=== PATIENT | female | born 1985 | race Caucasian/White ===

== ENCOUNTER 2022-04-20 03:41 | Emergency (ER) | payer OTHER, SELFPAY ==
[2022-04-20 03:50] VITALS: BP 180/80; PULSE 87; RESP 18; TEMP 36.6; O2SAT 100
[2022-04-20 04:31] LABS: COVID19 -Nasal RAPID Negative (Negative)
--- NOTE | 2022-04-20 06:13 | ED_ITS ---
HPI - General Adult General Chief complaint: Upper Respiratory Symptoms Stated complaint: throat swollen Time Seen by Provider: 04/20/22 06:04 Source: patient Mode of arrival: Ambulatory History of Present Illness HPI narrative: patient here for pharyngeal swelling. Started last night. Patient states this is the 2nd episode that this is happen. First episode occurred about 8 or 9 years ago. Patient states she used to live here. Moved away to [facility] 3 years ago. Came back October of this year and since then her allergies have been terrible. Has had nasal congestion and runny nose. Also has had cough. Patient does not smoke or do marijuana. Related Data Home Medications Medication Instructions Recorded Confirmed metformin 850 mg tablet 850 mg PO BID 12/26/21 03/30/22 Previous Rx's Medication Instructions Recorded albuterol sulfate 90 mcg/actuation 2 puff inhalation Q4-6H PRN 03/30/22 aerosol inhaler shortness of breath or wheezing #8.5 grams fexofenadine 60 mg tablet 60 mg PO BID #30 tabs 04/20/22 fluticasone propionate 50 1 spray intranasal BID #16 grams 04/20/22 mcg/actuation nasal spray,suspension methylprednisolone 4 mg tablets in See Rx Instructions PO .COMPLEX 04/20/22 a dose pack (Medrol (Anshu)) #21 ea Allergies Allergy/AdvReac Type Severity Reaction Status Date / Time No Known Drug Allergies Allergy Unverified 03/30/22 16:35 Review of Systems Review of Systems Narrative: GENERAL: Denies chills, fatigue, malaise, fever, sweats. HEENT: Denies sinus pain, ear pain, positive for throat swelling RESPIRATORY: Denies dyspnea, Positive forcough CARDIOVASCULAR: Denies chest pain, palpitations GASTROINTESTINAL: Denies nausea, vomiting, abdominal pain : Denies dysuria, frequency, hematuria MUSCULOSKELETAL: denies muscle or bony pain SKIN: Denies rash, skin lesions NEUROLOGIC: Denies weakness, numbness ROS Unobtainable: All systems reviewed & are unremarkable except as noted in HPI and below Patient History Social History Smoking Status: Never smoker Smoking Status: Never smoker Substance Use Type: does not use Exam Narrative Exam Narrative: GENERAL: in no distress, not toxic not dyspneic HEAD: Normocephalic. EYES: Pupils equal round No scleral icterus. ENT: Mucous membranes moist. there is enlargement edema of the uvula. No drooling. No tongue elevation. No malocclusion or trismus. Patient handling secretions and protecting airway. No pharyngeal erythema or edema or exudate NECK: Trachea midline. No stridor. CARDIOVASCULAR: Regular rate and rhythm without murmurs RESPIRATORY: Clear to auscultation. Breath sounds equal bilaterally. No wheezes, rales, or rhonchi. Speaking full sentences with ease. No respiratory distress BACK: No flank tenderness. NEURO: AOx4. SKIN: Warm and dry PSYCH: Not anxious, is cooperative Initial Vital Signs Initial Vital Signs: Vital Signs Temperature 98 F 04/20/22 03:50 Pulse Rate 87 04/20/22 03:50 Respiratory Rate 18 04/20/22 03:50 Blood Pressure 180/80 H 04/20/22 03:50 Pulse Oximetry 100 04/20/22 03:50 Oxygen Delivery Method 04/20/22 03:50 Course Course Course Narrative: no new issues during course of stay Orders Ordered: Discontinued Medications Oxymetazoline HCl (Oxymetazoline Nasal Staples 15 Ml) 2 sprays NASAL NOW ONE Stop: 04/20/22 06:13 Last Admin: 04/20/22 06:19 Dose: 2 sprays Documented By: SD Prednisone (Prednisone 20 Mg Tablet) 60 mg PO NOW ONE Stop: 04/20/22 06:13 Last Admin: 04/20/22 06:20 Dose: 60 mg Documented By: SD Reevaluation(s) Reevaluation #1: patient tolerated medications very well. Protecting airway. Return precautions reviewed with her. Reviewed diagnosis with her as well Time: 06:16 Vital Signs Vital signs: Vital Signs - 8 hr 04/20/22 03:50 Temperature 98 F Pulse Rate 87 Respiratory Rate 18 Blood Pressure 180/80 H Pulse Oximetry 100 Oxygen Delivery Method Room Air Medical Decision Making Differential Diagnosis Differential Diagnosis: pharyngitis/strep throat/ uvulitis /epiglottitis/ pharyngeal abscess/tonsi Lab Data Labs: Lab Results 04/20/22 Range/Units 03:55 SARS-CoV-2 (PCR) Negative (Negative) Point of Care Testing Rapid Strep A Negative Point of care testing: Point of Care Testing Rapid Strep A Negative MDM Narrative Medical decision making narrative: appropriate for discharge home. Exam reassuring. His clinically uvulitis. No imaging indicated this time. Not toxic. No respiratory complaints. No hypoxia. Patient protecting airway without difficulty. Return precautions reviewed with her. Referral to Otolaryngology given. Prescription for steroid pack as well as Flonase and allergy medication given. Discharge Plan Departure Patient Disposition: Home Clinical Impression: Uvulitis Instructions: Allergic Rhinitis Activity Restrictions/Additional Instructions: Please call provided ear nose and throat office today for office recheck of your throat next week. Continue steroid pack tomorrow. Return if any trouble breathing or swallowing or any drooling. Be sure to fill the prescriptions provided for you. You may be developing allergies. Will need daily maintenance medications to help for allergies. Your blood pressure was elevated today. Patient her to see her family doctor next week for recheck of your blood pressure. Call provided primary care referral phone number to establish family doctor. Call [phone] Prescriptions: New methylprednisolone [Medrol (Anshu)] 4 mg tablets,dose pack See Rx Instructions .ROUTE .COMPLEX Qty: 21 0RF Rx Instructions: orally per package directions fluticasone propionate 50 mcg/actuation spray,suspension 1 spray intranasal BID Qty: 16 0RF Rx Instructions: administer into each nostril fexofenadine 60 mg tablet 60 mg PO BID Qty: 30 0RF No Action metformin 850 mg tablet 850 mg PO BID albuterol sulfate 90 mcg/actuation HFA aerosol inhaler 2 puff inhalation Q4-6H PRN (Reason: shortness of breath or wheezing) Qty: 8.5 2RF Referrals: Sean Tran MD [Physician] - Miscellaneous,MD Elmer [Primary Care Provider] - Visit Report Forms: Patient Portal/API
[2022-04-20] MEDS: OXYMETAZOLINE NASAL SPRAY 15 ML 2 SPRAYS NASAL (06:19)
[2022-04-20] MEDS: predniSONE 20 MG TABLET 60 MG PO (06:20)
[2022-04-20 06:34] VITALS: BP 123/72; PULSE 99; RESP 20; O2SAT 99
== END 2022-04-20 06:35 | disposition home or self-care (01) ==
PROVIDERS: Emergency Provider Emergency Medicine
DX: K12.2 Cellulitis and abscess of mouth (principal); Z20.822 Contact with and (suspected) exposure to COVID-19
CPT/HCPCS: 87635; 87880; 99283; C9803; A9270

== ENCOUNTER → 2023-06-10 18:34 | Outpatient (CLI) | payer BC, OTHER, SELFPAY | PROVIDERS: Visit Provider Nurse Practitioner Family | DX: J02.9 Acute pharyngitis, unspecified (principal) | CPT/HCPCS: 87070; 87077; 87147 ==

== ENCOUNTER 2024-04-22 | Emergency (ER) | payer BC, SELFPAY ==
[2024-04-22 00:05] VITALS: BP 134/70; PULSE 108; RESP 20; TEMP 36.8; O2SAT 97; BMI 27.3
--- NOTE | 2024-04-22 00:36 | ED.URI ---
HPI - URI/Sore Throat General Chief Complaint: Upper Respiratory Symptoms Stated Complaint: throat and ear pain Time Seen by Provider: 04/22/24 00:03 Source: patient Mode of arrival: Ambulatory History of Present Illness HPI Narrative: 39-year-old female with history of diabetes on metformin presents for several hours of throat and left ear pain. Patient states that she noticed a tickle developing in her throat throughout the day that she thought was due to dry throat. She woke up around 11:00 p.m. and could not go back to sleep due to the pain. No medications taken at home prior to arrival. Reports referred pain to her left ear. No fevers at home. Related Data Home Medications Medication Instructions Recorded Confirmed metformin 850 mg tablet 850 mg PO BID 12/26/21 06/10/23 Previous Rx's Medication Instructions Recorded albuterol sulfate 90 mcg/actuation 2 puff inhalation Q4-6H PRN 03/30/22 aerosol inhaler shortness of breath or wheezing #8.5 grams fexofenadine 60 mg tablet 60 mg PO BID #30 tabs 04/20/22 fluticasone propionate 50 1 spray intranasal BID #16 grams 04/20/22 mcg/actuation nasal spray,suspension methylprednisolone 4 mg tablets in See Rx Instructions PO .COMPLEX 04/20/22 a dose pack (Medrol (Anshu)) #21 ea Allergies Allergy/AdvReac Type Severity Reaction Status Date / Time No Known Drug Allergies Allergy Unverified 06/10/23 18:32 Patient History Social History Smoking Status: Never smoker Smoking Status: Never smoker Substance Use Type: does not use Exam Initial Vital Signs Initial Vital Signs: Vital Signs Temperature 98.3 F 04/22/24 00:05 Pulse Rate 108 H 04/22/24 00:05 Respiratory Rate 20 04/22/24 00:05 Blood Pressure 134/70 04/22/24 00:05 Pulse Oximetry 97 04/22/24 00:05 Oxygen Delivery Method Room Air 04/22/24 00:05 Const: Awake, alert, no acute distress, nontoxic appearing HEENT: Mucous membranes moist, mild pharyngeal erythema without edema or exudates, TM normal bilaterally Skin: Warm, Dry, intact, no rashes Neuro: AO x3, CN II-XII grossly intact, moves all extremities Course Orders Ordered: ED Orders 04/22/24 00:30 Covid-19 + FLU A/B + RSV - PCR Stat 04/22/24 00:32 Strep Grp A by PCR Rapid Stat Discontinued Medications Dexamethasone (Dexamethasone 10 Mg/Ml Vial) 10 mg PO NOW ONE Stop: 04/22/24 00:36 Last Admin: 04/22/24 00:43 Dose: 10 mg Documented By: EMERSON Vital Signs Vital signs: Vital Signs - 8 hr 04/22/24 00:05 Temperature 98.3 F Pulse Rate 108 H Respiratory Rate 20 Blood Pressure 134/70 Pulse Oximetry 97 Oxygen Delivery Method Room Air MDM - URI/Sore Throat Lab Data Labs: Lab Results 04/22/24 04/22/24 Range/Units 00:30 00:32 SARS-CoV-2 (PCR) Negative (Negative) Influenza A (RT-PCR) Flu a negative (NEGATIVE) Influenza B (RT-PCR) Flu b negative (NEGATIVE) RSV (PCR) Negative (Negative) Group A Strep (PCR) Negative (Negative) MDM Narrative Medical decision making narrative: Several hours of sore throat. Physical exam is relatively unremarkable, mild pharyngeal erythema but no edema, exudates, unilateral swelling to suggest underlying abscess. Flu, COVID, RSV, strep swabs negative. Patient given dose of steroids, counseled on the effects of steroids can have on blood sugars. Supportive measures counseled for home. Discharge Plan Departure Patient Disposition: Home Clinical Impression: Pharyngitis Qualifiers: Pharyngitis/tonsillitis etiology: unspecified etiology Qualified Code(s): J02.9 - Acute pharyngitis, unspecified Instructions: DI for Viral Pharyngitis Activity Restrictions/Additional Instructions: Your strep, flu, COVID, and RSV swabs were negative today. Your sore throat is still likely to be caused by a virus. Take Tylenol and Motrin for pain or discomfort. Use warm saltwater gargles, or tea with honey for comfort. You may also use Cepacol lozenges, which have a numbing medication in them, for comfort. You were given a dose of steroids today, which may temporarily increase your blood sugars. Please watch your diet for the next several days due to your history of diabetes. Prescriptions: No Action metformin 850 mg tablet 850 mg PO BID albuterol sulfate 90 mcg/actuation HFA aerosol inhaler 2 puff inhalation Q4-6H PRN (Reason: shortness of breath or wheezing) Qty: 8.5 2RF methylprednisolone [Medrol (Anshu)] 4 mg tablets,dose pack See Rx Instructions .ROUTE .COMPLEX Qty: 21 0RF Rx Instructions: orally per package directions fluticasone propionate 50 mcg/actuation spray,suspension 1 spray intranasal BID Qty: 16 0RF Rx Instructions: administer into each nostril fexofenadine 60 mg tablet 60 mg PO BID Qty: 30 0RF Referrals: Miscellaneous,Doctor, MD [Primary Care Provider] - Stand Alone Forms: Patient Portal/API
[2024-04-22] MEDS: DEXAMETHASONE 10 MG/ML VIAL PO (00:43)
[2024-04-22 00:47] LABS: Strep Grp A by PCR Rapid Negative (Negative)
[2024-04-22 01:22] LABS: COVID-19 CEPHEID 4-PLEX PCR Negative (Negative); Influenza A - CEPHEID Flu A NEGATIVE (NEGATIVE); Influenza B - CEPHEID Flu B NEGATIVE (NEGATIVE); Respiratory Syncytial Virus Negative (Negative)
[2024-04-22 01:30] VITALS: BP 142/77; PULSE 104; RESP 18; O2SAT 96
== END 2024-04-22 01:34 | disposition home or self-care (01) ==
PROVIDERS: Emergency Provider Emergency Medicine
DX: J02.9 Acute pharyngitis, unspecified (principal); H92.02 Otalgia, left ear; Z11.52 Encounter for screening for COVID-19
CPT/HCPCS: 0241U; 87651; 99283; J1100

== ENCOUNTER 2024-04-26 17:00 | Emergency (ER) | payer BC, SELFPAY ==
[2024-04-26 17:07] VITALS: BP 134/76; PULSE 104; RESP 18; TEMP 36.4; O2SAT 99; BMI 26.6
[2024-04-26 20:22] VITALS: BP 133/84; PULSE 104; RESP 16; O2SAT 100
--- NOTE | 2024-04-26 20:25 | PC.NURSE ---
Eye acuity completed Pt is 20/50 left eye, 20/30 right eye, 20/30 both eyes.
--- NOTE | 2024-04-26 22:59 | ED_ITS ---
HPI - Eye Problem General Chief complaint: Eye Problems Stated complaint: Eye swelling Time Seen by Provider: 04/26/24 22:50 Source: patient Mode of arrival: Ambulatory History of Present Illness HPI Narrative: 39-year-old female with left eye swelling, no trauma or injury recalled, discharge from the eye recalled. No loss of vision, no blurry vision. She does not wear contacts. She does not recall any injury trauma foreign body sens ation. Recent cough cold symptoms days ago, cough seemed to have resolved. No close contacts with persons with similar symptoms. No pain with movement of eyes. No double vision. Related Data Home Medications Medication Instructions Recorded Confirmed metformin 850 mg tablet 850 mg PO BID 12/26/21 06/10/23 Previous Rx's Medication Instructions Recorded albuterol sulfate 90 mcg/actuation 2 puff inhalation Q4-6H PRN 03/30/22 aerosol inhaler shortness of breath or wheezing #8.5 grams fexofenadine 60 mg tablet 60 mg PO BID #30 tabs 04/20/22 fluticasone propionate 50 1 spray intranasal BID #16 grams 04/20/22 mcg/actuation nasal spray,suspension methylprednisolone 4 mg tablets in See Rx Instructions PO .COMPLEX 04/20/22 a dose pack (Medrol (Anshu)) #21 ea amoxicillin 875 mg-potassium 1 tab PO BID #14 tabs 04/26/24 clavulanate 125 mg tablet erythromycin 5 mg/gram (0.5 %) eye 1 applic EYE-LEFT TID eye 04/26/24 ointment infection 7 days #3.5 grams Allergies Allergy/AdvReac Type Severity Reaction Status Date / Time No Known Drug Allergies Allergy Verified 04/26/24 17:07 Review of Systems Review of Systems Narrative: See HPI Patient History Social History Smoking Status: Never smoker Smoking Status: Never smoker Substance Use Type: does not use Exam Narrative Exam Narrative: GENERAL: Well-developed patient, in mild distress. HEAD: Atraumatic. Normocephalic. EYES: Pupils equal round and reactive. Extraocular motions intact. No scleral icterus. No injection or drainage. Left eye preseptal edema, with discharge. Left conjunctival erythema ENT: Nose without bleeding, purulent drainage. Throat without erythema, tonsillar hypertrophy or exudate. Airway patent. NECK: Trachea midline. Non tender CARDIOVASCULAR: Regular rate and rhythm without murmurs, gallops, or rubs. RESPIRATORY: Clear to auscultation. Breath sounds equal bilaterally. No wheezes, rales, or rhonchi. GASTROINTESTINAL: Abdomen soft, non-tender, nondistended. EXTREMITIES: No edema or joint tenderness. BACK: Nontender without deformity or crepitance. No flank tenderness. NEURO: AOx3. SKIN: No rash or erythema of visible areas Initial Vital Signs Initial Vital Signs: Vital Signs Temperature 97.6 F 04/26/24 17:07 Pulse Rate 104 H 04/26/24 17:07 Respiratory Rate 18 04/26/24 17:07 Blood Pressure 134/76 04/26/24 17:07 Pulse Oximetry 99 04/26/24 17:07 Oxygen Delivery Method Room Air 04/26/24 17:07 Course Orders Ordered: Discontinued Medications Ceftriaxone Sodium (Ceftriaxone 2,000 Mg Vial) 1,000 mg IM NOW ONE Stop: 04/26/24 23:01 Last Admin: 04/26/24 23:31 Dose: 1,000 mg Documented By: Erythromycin (Erythromycin Ophth 1 Gm Oint) 1 applic EYE-LEFT NOW ONE Stop: 04/26/24 23:24 Last Admin: 04/26/24 23:31 Dose: 1 applic Documented By: Proparacaine HCl (Proparacaine 0.5% Ophth Anh) 1 drops EYE-LEFT NOW ONE Stop: 04/26/24 23:07 Propofol (Propofol 200 Mg/20 Ml Vial) 100 mg IV NOW ONE Stop: 04/26/24 23:41 Last Admin: 04/26/24 23:51 Dose: Not Given Documented By: YVETTE Vital Signs Vital signs: Vital Signs - 8 hr 04/26/24 17:07 04/26/24 20:22 04/26/24 23:38 Temperature 97.6 F 98.2 F Pulse Rate 104 H 104 H 65 Respiratory Rate 18 16 18 Blood Pressure 134/76 133/84 125/78 Pulse Oximetry 99 100 98 Oxygen Delivery Method Room Air Room Air Room Air MDM - Eye Problem MDM Narrative Medical decision making narrative: 39-year-old female with left eye swelling and discharge, recent upper respiratory infection symptoms, history of uvulitis had been treated recently with steroid course, that seemed to have improved. No injury or trauma to the eye. Discharge present, difficult to open eye for pupillary exam or fluorescein exam due to swelling. Edema seems to be preseptal, not periorbital, no pain with ocular movements. Swab sent for bacterial culture, swab sent for GC chlamydia. IM ceftriaxone Matting and discharge was cleared with moist washcloth, patient seems to be able to move [id number] up and down without discomfort, doubt orbital cellulitis, we will hold on advanced imaging at this time. Topical anesthetic drops, Wood's lamp shows mucous flecks that are mobile, no fixed uptake, no obvious dendritic or other corneal lesions, no foreign body seen Topical erythromycin to left eye, prescription sent for further antibiotics. Follow up with her eye doctor advised within 2 days, check symptoms and culture results. Return precautions discussed Discharge Plan Departure Patient Disposition: Home Clinical Impression: Conjunctivitis, Cellulitis of eyelid Activity Restrictions/Additional Instructions: Left eyelid swelling and discharge, recent upper respiratory infection symptoms. Matting and discharge on exam, swab sent for culture. Intramuscular ceftriaxone given, and topical erythromycin antibiotic. Fluorescein exam done, no obvious corneal abrasions. Follow up with your eye doctor in 2 days. Return to this/nearest emergency department for any change worsening symptoms or any concerns prior Prescriptions: New amoxicillin-pot clavulanate 875-125 mg tablet 1 tab PO BID Qty: 14 0RF erythromycin 5 mg/gram (0.5 %) ointment 1 applic EYE-LEFT TID 7 Days Qty: 3.5 0RF No Action metformin 850 mg tablet 850 mg PO BID albuterol sulfate 90 mcg/actuation HFA aerosol inhaler 2 puff inhalation Q4-6H PRN (Reason: shortness of breath or wheezing) Qty: 8.5 2RF methylprednisolone [Medrol (Anshu)] 4 mg tablets,dose pack See Rx Instructions .ROUTE .COMPLEX Qty: 21 0RF Rx Instructions: orally per package directions fluticasone propionate 50 mcg/actuation spray,suspension 1 spray intranasal BID Qty: 16 0RF Rx Instructions: administer into each nostril fexofenadine 60 mg tablet 60 mg PO BID Qty: 30 0RF Referrals: Miscellaneous,Doctor, MD [Primary Care Provider] - Stand Alone Forms: Patient Portal/API, Work Release Note
[2024-04-26] MEDS: cefTRIAXone 2,000 MG VIAL 1000 MG IM (23:31)
[2024-04-26] MEDS: ERYTHROMYCIN OPHTH 1 GM OINT 1 APPLIC EYE-LEFT (23:31)
[2024-04-26 23:38] VITALS: BP 125/78; PULSE 65; RESP 18; TEMP 36.8; O2SAT 98
== END 2024-04-27 00:03 | disposition home or self-care (01) ==
PROVIDERS: Emergency Provider Emergency Medicine
DX: H10.9 Unspecified conjunctivitis (principal); H00.036 Abscess of eyelid left eye, unspecified eyelid
CPT/HCPCS: 96372; 99283; J0696

== ENCOUNTER → 2025-02-07 12:31 | Outpatient (CLI) | payer BC, SELFPAY ==
[2025-02-07 14:44] LABS: Influenza A - CEPHEID Flu A NEGATIVE (NEGATIVE); Influenza B - CEPHEID Flu B NEGATIVE (NEGATIVE); Respiratory Syncytial Virus Negative (Negative)
[2025-02-07 14:47] LABS: COVID-19 CEPHEID 4-PLEX PCR Negative (Negative)
== END ==
PROVIDERS: Visit Provider Physician Assistant Surgical
DX: J02.9 Acute pharyngitis, unspecified (principal); R09.81 Nasal congestion
CPT/HCPCS: 0241U; 87070; 87077; 87147